=== PATIENT | female | born 1945 | race Caucasian/White ===

== ENCOUNTER → 2020-02-27 | Outpatient (CLI) | payer MEDICARE, OTHER ==
[~2020-02-27] MED LIST: ABILIFY10 MG PO; ACIPHEX20 MG PO; ALBUTEROL2.5 MG/3 M INH; AMMONIUM LACTA140 GM TOP; ARICEPT10 MG PO; BACTROBAN OINT22 GM EXT; BENTYL 10MG CAP10 MG PO; BRYHALI100 GM TOP; CEFUROXIME500 MG PO; CETIRIZINE HCL10 MG PO; CHRONULAC20 GM/30 M PO; CIPRO500 MG PO; CRESTOR40 MG PO; DULERA 200 MCG8.8 GM INH; DULOXETINE HCL30 MG PO; DULOXETINE HCL60 MG PO; DYMISTA NASAL S23 GM; E.E.S. 200200 MG/5 M PO; ECOTRIN81 MG PO; FAMOTIDINE40 MG PO; FLAGYL500 MG PO; FLONASE 0.05% N16 GM; GLUCOPHAGE500 MG PO; GUAIFENESIN DM1 EACH PO; HUMALOG MI100 UNIT/2 SQ; HUMALOG100 UNIT/1 SC; HUMULIN R100 UNIT/1 INJ; HYDROCODON-ACE1 EAC6 PO; IBUPROFEN600 MG PO; LANTUS SOL100 UNIT/1 SQ; LANTUS100 UNIT/1 SQ; LEVOCETIRIZINE D5 MG PO; LINZESS145 MCG PO; LOPRESSOR100 MG PO; MAGOX 400400 MG PO; MIRALAX17 GM PO; MODAFINIL100 MG PO; MUCINEX DM ER1 EAC1 PO; MYRBETRIQ50 MG PO; NEURONTIN 300300 MG PO; NITROFURANTOIN100 M1 PO; NITROSTAT0.4 MG SL; NYSTATIN15 GM TOP; OPTIMAL D350000 UNIT PO; ORAZINC220 MG PO; OZEMPIC0.25 MG/0. SQ; PATANOL OP SOLN5 ML EYELF; PLAVIX 75 MG TA75 MG PO; PRINIVIL20 MG PO; PROAIR HFA8.5 GM INH; PROBIOTIC1 EAC3 PO; PROTONIX40 MG PO; REQUIP0.5 MG PO; ROBAXIN500 MG PO; SOLIFENACIN SUC10 MG PO; SYNTHROID88 MCG PO; THERAGRAN M TAB1 EA PO; TYLENOL 500 MG500 MG PO; VESICARE5 MG PO; VISTARIL 50 MG50 MG PO; VITAMIN B-121000 MCG PO; VITAMIN D35000 UNI1 PO; VOLTAREN100 GM TP; VSL#3 CAPSULE1 EACH PO; WELLBUTRIN SR150 M1 PO; WIXELA 250-501 EACH INH
[2020-02-27 11:30] LABS: HEMOGLOBIN 16.4 gm/dl (12.3-15.3); RED BLOOD COUNT 5.11 M/UL (4.00-5.10); WHITE BLOOD COUNT 9.1 K/UL (4.5-11.0)
[2020-02-27 12:15] LABS: BUN/CREATININE RATIO 26 (0-10)
[2020-02-28 10:14] LABS: CREATININE, URINE 128.5 mg/dL (Not Estab.)
== END ==
LOC: LAB 10:57
PROVIDERS: Nurse Practitioner Family
DX: E11.42 Type 2 diabetes mellitus with diabetic polyneuropathy (principal); R06.02 Shortness of breath; I10 Essential (primary) hypertension; R10.84 Generalized abdominal pain; M54.12 Radiculopathy, cervical region; M25.50 Pain in unspecified joint; G89.29 Other chronic pain; J44.9 Chronic obstructive pulmonary disease, unspecified; E78.5 Hyperlipidemia, unspecified; R53.81 Other malaise; E53.8 Deficiency of other specified B group vitamins; R41.3 Other amnesia; R20.2 Paresthesia of skin; R26.81 Unsteadiness on feet; E55.9 Vitamin D deficiency, unspecified; F32.9 Major depressive disorder, single episode, unspecified
CPT/HCPCS: 36415; 80053; 80061; 82043; 82570; 82607; 83036; 83880; 84439; 84443; 85025

== ENCOUNTER 2020-03-13 11:50 | Emergency (ER) | payer MEDICARE, OTHER ==
[~2020-03-13 11:50] MED LIST changes: -ABILIFY10 MG PO; -AMMONIUM LACTA140 GM TOP; -BACTROBAN OINT22 GM EXT; -BRYHALI100 GM TOP; -CEFUROXIME500 MG PO; -CETIRIZINE HCL10 MG PO; -DULOXETINE HCL30 MG PO; -DULOXETINE HCL60 MG PO; -E.E.S. 200200 MG/5 M PO; -FAMOTIDINE40 MG PO; -HUMALOG100 UNIT/1 SC; -HYDROCODON-ACE1 EAC6 PO; -LANTUS SOL100 UNIT/1 SQ; -MODAFINIL100 MG PO; -NITROFURANTOIN100 M1 PO; -NYSTATIN15 GM TOP; -PROTONIX40 MG PO; -SOLIFENACIN SUC10 MG PO; -VOLTAREN100 GM TP; -WELLBUTRIN SR150 M1 PO; -WIXELA 250-501 EACH INH
[2020-03-13 12:48] LABS: HEMOGLOBIN 13.8 gm/dl (12.3-15.3); RED BLOOD COUNT 4.28 M/UL (4.00-5.10); WHITE BLOOD COUNT 8.7 K/UL (4.5-11.0)
[2020-03-13 13:07] LABS: BUN/CREATININE RATIO 20 (0-10)
[2020-05-17] MEDS ORDERED: CETIRIZINE HCL10 MG PO (12:10)
[2020-05-17] MEDS ORDERED: HYDROCODON-ACE1 EAC6 PO (12:11)
[2020-05-17] MEDS ORDERED: LANTUS SOL100 UNIT/1 SQ (12:12)
[2020-05-17] MEDS ORDERED: FAMOTIDINE40 MG PO (12:12)
[2020-05-17] MEDS ORDERED: SOLIFENACIN SUC10 MG PO (12:14)
[2020-05-17] MEDS ORDERED: WELLBUTRIN SR150 M1 PO (12:15)
[2020-05-17] MEDS ORDERED: VOLTAREN100 GM TP (12:17)
[2020-05-17] MEDS ORDERED: MODAFINIL100 MG PO (12:18)
[2020-05-17] MEDS ORDERED: DULOXETINE HCL60 MG PO (12:19)
[2020-05-17] MEDS ORDERED: DULOXETINE HCL30 MG PO (12:19)
[2020-05-17] MEDS ORDERED: WIXELA 250-501 EACH INH (12:21)
[2020-05-17] MEDS ORDERED: MUCINEX DM ER1 EAC1 PO (12:22)
[2020-05-17] MEDS ORDERED: ABILIFY10 MG PO (12:23)
[2020-05-17] MEDS ORDERED: CRESTOR40 MG PO (12:24)
[2020-05-17] MEDS ORDERED: E.E.S. 200200 MG/5 M PO (12:25)
[2020-05-17] MEDS ORDERED: BRYHALI100 GM TOP (12:27)
[2020-05-17] MEDS ORDERED: BACTROBAN OINT22 GM EXT (12:29)
[2020-05-17] MEDS ORDERED: HUMALOG100 UNIT/1 SC (12:30)
[2020-05-17] MEDS ORDERED: NYSTATIN15 GM TOP (12:32)
[2020-05-17] MEDS ORDERED: AMMONIUM LACTA140 GM TOP (12:33)
[2020-05-17] MEDS ORDERED: NITROFURANTOIN100 M1 PO (12:39)
== END 2020-03-13 14:45 | disposition home or self-care (01) ==
LOC: ER1 11:50
PROVIDERS: Family Medicine
DX: F41.9 Anxiety disorder, unspecified (principal); E11.65 Type 2 diabetes mellitus with hyperglycemia; G31.9 Degenerative disease of nervous system, unspecified; G93.89 Other specified disorders of brain; Z98.890 Other specified postprocedural states; W19.XXXA Unspecified fall, initial encounter
CPT/HCPCS: 70450; 71045; 80053; 81001; 82550; 82553; 82962; 83874; 84484; 85025; 85610; 93005; 99284

== ENCOUNTER → 2020-04-18 | Outpatient (CLI) | payer MEDICARE, OTHER ==
[~2020-04-18] MED LIST changes: +ABILIFY10 MG PO; +AMMONIUM LACTA140 GM TOP; +BACTROBAN OINT22 GM EXT; +BRYHALI100 GM TOP; +CEFUROXIME500 MG PO; +CETIRIZINE HCL10 MG PO; +DULOXETINE HCL30 MG PO; +DULOXETINE HCL60 MG PO; +E.E.S. 200200 MG/5 M PO; +FAMOTIDINE40 MG PO; +HUMALOG100 UNIT/1 SC; +HYDROCODON-ACE1 EAC6 PO; +LANTUS SOL100 UNIT/1 SQ; +MODAFINIL100 MG PO; +NITROFURANTOIN100 M1 PO; +NYSTATIN15 GM TOP; +PROTONIX40 MG PO; +SOLIFENACIN SUC10 MG PO; +VOLTAREN100 GM TP; +WELLBUTRIN SR150 M1 PO; +WIXELA 250-501 EACH INH
== END ==
LOC: RAD 14:19
DX: M25.562 Pain in left knee (principal); M17.12 Unilateral primary osteoarthritis, left knee; W19.XXXA Unspecified fall, initial encounter
CPT/HCPCS: 73560

== ENCOUNTER → 2020-04-30 | Outpatient (CLI) | payer MEDICARE, OTHER | LOC: EXRD 04-26 13:45 → HEART 5 04-26 14:30 → US 09:30 | DX: R55 Syncope and collapse (principal); I65.23 Occlusion and stenosis of bilateral carotid arteries | CPT/HCPCS: 93880 ==

== ENCOUNTER 2020-05-05 14:19 | Emergency (ER) | payer MEDICARE, OTHER ==
[~2020-05-05 14:19] MED LIST changes: -ABILIFY10 MG PO; -AMMONIUM LACTA140 GM TOP; -BACTROBAN OINT22 GM EXT; -BRYHALI100 GM TOP; -CEFUROXIME500 MG PO; -CETIRIZINE HCL10 MG PO; -DULOXETINE HCL30 MG PO; -DULOXETINE HCL60 MG PO; -E.E.S. 200200 MG/5 M PO; -FAMOTIDINE40 MG PO; -HUMALOG100 UNIT/1 SC; -HYDROCODON-ACE1 EAC6 PO; -LANTUS SOL100 UNIT/1 SQ; -MODAFINIL100 MG PO; -NITROFURANTOIN100 M1 PO; -NYSTATIN15 GM TOP; -PROTONIX40 MG PO; -SOLIFENACIN SUC10 MG PO; -VOLTAREN100 GM TP; -WELLBUTRIN SR150 M1 PO; -WIXELA 250-501 EACH INH
[2020-05-05 17:39] LABS: HEMOGLOBIN 14.8 gm/dl (12.3-15.3); RED BLOOD COUNT 4.55 M/UL (4.00-5.10); WHITE BLOOD COUNT 8.4 K/UL (4.5-11.0)
[2020-05-05 18:01] LABS: BUN/CREATININE RATIO 32 (0-10)
[2020-05-05] MEDS ORDERED: PROTONIX40 MG PO (19:26)
[2020-05-05] MEDS ORDERED: CEFUROXIME500 MG PO (19:26)
[2020-05-17] MEDS ORDERED: CETIRIZINE HCL10 MG PO (12:10)
[2020-05-17] MEDS ORDERED: HYDROCODON-ACE1 EAC6 PO (12:11)
[2020-05-17] MEDS ORDERED: FAMOTIDINE40 MG PO (12:12)
[2020-05-17] MEDS ORDERED: LANTUS SOL100 UNIT/1 SQ (12:12)
[2020-05-17] MEDS ORDERED: SOLIFENACIN SUC10 MG PO (12:14)
[2020-05-17] MEDS ORDERED: WELLBUTRIN SR150 M1 PO (12:15)
[2020-05-17] MEDS ORDERED: VOLTAREN100 GM TP (12:17)
[2020-05-17] MEDS ORDERED: MODAFINIL100 MG PO (12:18)
[2020-05-17] MEDS ORDERED: DULOXETINE HCL30 MG PO (12:19)
[2020-05-17] MEDS ORDERED: DULOXETINE HCL60 MG PO (12:19)
[2020-05-17] MEDS ORDERED: WIXELA 250-501 EACH INH (12:21)
[2020-05-17] MEDS ORDERED: MUCINEX DM ER1 EAC1 PO (12:22)
[2020-05-17] MEDS ORDERED: ABILIFY10 MG PO (12:23)
[2020-05-17] MEDS ORDERED: CRESTOR40 MG PO (12:24)
[2020-05-17] MEDS ORDERED: E.E.S. 200200 MG/5 M PO (12:25)
[2020-05-17] MEDS ORDERED: BRYHALI100 GM TOP (12:27)
[2020-05-17] MEDS ORDERED: BACTROBAN OINT22 GM EXT (12:29)
[2020-05-17] MEDS ORDERED: HUMALOG100 UNIT/1 SC (12:30)
[2020-05-17] MEDS ORDERED: NYSTATIN15 GM TOP (12:32)
[2020-05-17] MEDS ORDERED: AMMONIUM LACTA140 GM TOP (12:33)
[2020-05-17] MEDS ORDERED: NITROFURANTOIN100 M1 PO (12:39)
== END 2020-05-05 20:06 | disposition home or self-care (01) ==
LOC: ER1 14:19
PROVIDERS: Physician Assistant
DX: N39.0 Urinary tract infection, site not specified (principal); R07.89 Other chest pain; R31.29 Other microscopic hematuria; E11.9 Type 2 diabetes mellitus without complications; R19.5 Other fecal abnormalities; J44.9 Chronic obstructive pulmonary disease, unspecified; Z90.710 Acquired absence of both cervix and uterus; Z90.49 Acquired absence of other specified parts of digestive tract; Z88.8 Allergy status to other drugs, medicaments and biological substances; Z79.4 Long term (current) use of insulin
CPT/HCPCS: 71045; 80053; 81001; 82270; 82550; 82553; 83874; 84484; 85025; 87086; 93005; 99284

== ENCOUNTER → 2020-05-10 | Outpatient (CLI) | payer MEDICARE, OTHER ==
[~2020-05-10] MED LIST changes: +ABILIFY10 MG PO; +AMMONIUM LACTA140 GM TOP; +BACTROBAN OINT22 GM EXT; +BRYHALI100 GM TOP; +CEFUROXIME500 MG PO; +CETIRIZINE HCL10 MG PO; +DULOXETINE HCL30 MG PO; +DULOXETINE HCL60 MG PO; +E.E.S. 200200 MG/5 M PO; +FAMOTIDINE40 MG PO; +HUMALOG100 UNIT/1 SC; +HYDROCODON-ACE1 EAC6 PO; +LANTUS SOL100 UNIT/1 SQ; +MODAFINIL100 MG PO; +NITROFURANTOIN100 M1 PO; +NYSTATIN15 GM TOP; +PROTONIX40 MG PO; +SOLIFENACIN SUC10 MG PO; +VOLTAREN100 GM TP; +WELLBUTRIN SR150 M1 PO; +WIXELA 250-501 EACH INH
== END ==
LOC: NM 10:00 → ECHO 11:45 → NM 13:00
DX: I25.10 Atherosclerotic heart disease of native coronary artery without angina pectoris (principal); R06.02 Shortness of breath; R55 Syncope and collapse; I08.3 Combined rheumatic disorders of mitral, aortic and tricuspid valves
CPT/HCPCS: ECHO; 93306

== ENCOUNTER → 2020-05-17 | Day surgery (SDC) | payer MEDICARE, OTHER ==
[~2020-05-17] VITALS: Ht 167.6 cm; Wt 112.5 kg
== END | disposition home or self-care (01) ==
LOC: OR 10:38
DX: N39.41 Urge incontinence (principal); R35.0 Frequency of micturition; F41.9 Anxiety disorder, unspecified; J44.9 Chronic obstructive pulmonary disease, unspecified; I25.10 Atherosclerotic heart disease of native coronary artery without angina pectoris; E11.9 Type 2 diabetes mellitus without complications; E66.01 Morbid (severe) obesity due to excess calories; E03.9 Hypothyroidism, unspecified; Z86.73 Personal history of transient ischemic attack (TIA), and cerebral infarction without residual deficits; Z87.891 Personal history of nicotine dependence; Z98.890 Other specified postprocedural states; Z68.41 Body mass index [BMI] 40.0-44.9, adult; Z79.82 Long term (current) use of aspirin; Z79.4 Long term (current) use of insulin; Z79.02 Long term (current) use of antithrombotics/antiplatelets; Z79.899 Other long term (current) drug therapy
CPT/HCPCS: 82962; J0585; J1100; J1956; J2405; J2704; J3010; J7040; J7120

== ENCOUNTER → 2020-06-22 | Outpatient (CLI) | payer MEDICARE, OTHER | LOC: NM 05-10 13:00 | DX: I25.10 Atherosclerotic heart disease of native coronary artery without angina pectoris (principal); R06.02 Shortness of breath; R55 Syncope and collapse | CPT/HCPCS: 78452; 93017; A9502 ==

== ENCOUNTER → 2020-07-13 | Outpatient (CLI) | payer MEDICARE, OTHER ==
[2020-07-13 12:53] LABS: HEMOGLOBIN 16.5 gm/dl (12.3-15.3); RED BLOOD COUNT 5.08 M/UL (4.00-5.10); WHITE BLOOD COUNT 9.7 K/UL (4.5-11.0)
[2020-07-13 13:30] LABS: BUN/CREATININE RATIO 23 (0-10)
[2020-07-14 08:13] LABS: CREATININE, URINE 191.7 mg/dL (Not Estab.)
== END ==
LOC: LAB 11:53
PROVIDERS: Nurse Practitioner Family
DX: M54.5 Low back pain (principal); M25.552 Pain in left hip; M25.551 Pain in right hip; E11.42 Type 2 diabetes mellitus with diabetic polyneuropathy; R10.84 Generalized abdominal pain; K21.9 Gastro-esophageal reflux disease without esophagitis; M25.50 Pain in unspecified joint; E78.5 Hyperlipidemia, unspecified; K59.00 Constipation, unspecified; E55.9 Vitamin D deficiency, unspecified; R41.3 Other amnesia; R20.2 Paresthesia of skin; R26.81 Unsteadiness on feet; M47.816 Spondylosis without myelopathy or radiculopathy, lumbar region; M16.0 Bilateral primary osteoarthritis of hip
CPT/HCPCS: 36415; 72100; 73522; 80053; 80061; 82043; 82570; 82607; 83036; 84439; 84443; 85025

== ENCOUNTER → 2020-07-26 | Outpatient (CLI) | payer MEDICARE, OTHER | LOC: CT 06-28 08:00 | DX: N28.89 Other specified disorders of kidney and ureter (principal); K56.699 Other intestinal obstruction unspecified as to partial versus complete obstruction | CPT/HCPCS: 36415; 82565; 84520; Q9967 ==

== ENCOUNTER → 2020-10-04 | Outpatient (CLI) | payer MEDICARE, OTHER | LOC: HEART 5 12:20 | DX: J45.40 Moderate persistent asthma, uncomplicated (principal) | CPT/HCPCS: 94010 ==

== ENCOUNTER → 2020-10-17 | Outpatient (CLI) | payer MEDICARE, OTHER ==
[2020-10-17 11:02] LABS: RED BLOOD COUNT 4.86 M/UL (4.00-5.10); WHITE BLOOD COUNT 8.2 K/UL (4.5-11.0)
== END ==
LOC: LAB 09:07
PROVIDERS: Nurse Practitioner Family
DX: E11.42 Type 2 diabetes mellitus with diabetic polyneuropathy (principal); R10.84 Generalized abdominal pain; K21.9 Gastro-esophageal reflux disease without esophagitis; M54.9 Dorsalgia, unspecified; G89.29 Other chronic pain; M25.50 Pain in unspecified joint; E78.5 Hyperlipidemia, unspecified; K59.00 Constipation, unspecified; R41.3 Other amnesia; R20.2 Paresthesia of skin; R26.81 Unsteadiness on feet; E55.9 Vitamin D deficiency, unspecified; Z79.4 Long term (current) use of insulin
CPT/HCPCS: 36415; 80053; 80061; 82607; 83036; 84439; 84443; 85025

== ENCOUNTER → 2020-11-13 | Outpatient (CLI) | payer MEDICARE, OTHER | LOC: RAD 15:47 | DX: R04.2 Hemoptysis (principal) | CPT/HCPCS: 71046 ==

== ENCOUNTER → 2020-12-11 | Outpatient (CLI) | payer MEDICARE, OTHER | LOC: KOH-I 12-06 11:00 | DX: J44.9 Chronic obstructive pulmonary disease, unspecified (principal); J98.2 Interstitial emphysema; R06.02 Shortness of breath | CPT/HCPCS: 71250 ==